=== PATIENT | female | born 1985 | race Hispanic/Latino ===

== ENCOUNTER 2018-02-17 21:30 | Emergency (ER) | payer SELFPAY ==
[2018-02-17] MEDS ORDERED: Naproxen 550 mg Tab PO STA (22:32)
--- NOTE | 2018-02-17 22:35 | C.PDOC ---
History Of Present Illness 33-year-old female presents to the ED complaining of left-sided neck pain since waking up today. She describes her neck feeling tight. No trauma or injury. Patient notes that the pain worsens when rotating her head toward the left, but not in the other direction. She reports having episodes of similar pain on the right side of neck in the past, for which she was treated with physical therapy. Otherwise denies any fever, chills, headache, dizziness, or changes in sensation. Time Seen by Provider: 02/17/18 21:57 Chief Complaint (Nursing): Headache History Per: Patient History/Exam Limitations: no limitations Onset/Duration Of Symptoms: Days (x1) Current Symptoms Are (Timing): Still Present Quality: Tightness Past Medical History Reviewed: Historical Data, Nursing Documentation, Vital Signs Vital Signs: Last Vital Signs Temp 99 F 02/17/18 22:50 Pulse 70 02/17/18 22:50 Resp 16 02/17/18 22:50 BP 122/75 02/17/18 22:50 Pulse Ox 98 02/17/18 23:37 - Medical History PMH: Asthma - [facility] Procedures OTHER SKIN & SUBQ I D (02/21/15) Family History: States: Unknown Family Hx - Social History Hx Tobacco Use: Yes Hx Alcohol Use: No Hx Substance Use: No - Immunization History Hx Tetanus Toxoid Vaccination: Yes (November 2015) Hx Influenza Vaccination: No Hx Pneumococcal Vaccination: No Review Of Systems Constitutional: Negative for: Fever, Chills Musculoskeletal: Positive for: Neck Pain Neurological: Negative for: Weakness, Numbness Physical Exam - Physical Exam Appears: Well, Non-toxic, No Acute Distress Skin: Normal Color, Warm, Dry Head: Atraumatic, Normacephalic Eye(s): bilateral: Normal Inspection, EOMI Nose: Normal Oral Mucosa: Moist Neck: Normal ROM (pain ellicited with rotation to the ipsilateral side), Trachea Midline, No Midline Cervical Tenderness, No Step Off Deformity, Supple, Other (Tenderness to the left trapezius, with muscle spasm) Lymphatic: Normal Exam Chest: Symmetrical Cardiovascular: Rhythm Regular Respiratory: Normal Breath Sounds, No Accessory Muscle Use, Other (Speaking in full sentences) Back: Normal Inspection, No Vertebral Tenderness Extremity: Bilateral: Atraumatic, Normal ROM Neurological/Psych: Oriented x3, Normal Speech, Normal Motor, Normal Sensation, Other (No focal deficits) ED Course And Treatment O2 Sat by Pulse Oximetry: 98 (RA) Pulse Ox Interpretation: Normal Progress Note: Patient treated with PO Naproxen and Flexeril. On re-evlauation , pain improved. Patient discharged home with prescriptions for Naproxen and Flexeril. Advised to follow up with PMD for further evaluation in 1-2 days. Disposition Counseled Patient/Family Regarding: Diagnosis, Need For Followup, Rx Given - Disposition Disposition: HOME/ ROUTINE Disposition Time: 22:32 Condition: STABLE Additional Instructions: Follow up with your primary doctor and physical therapist in 1-2 days. Return to ER if symptoms persist or worsen. Prescriptions: Cyclobenzaprine [Cyclobenzaprine HCl] 10 mg PO BID PRN #14 tab PRN Reason: Muscle Spasm Naproxen [Naprosyn] 1 tab PO BID PRN #20 tab PRN Reason: Pain Instructions: Cervical Muscle Strain (DC) Forms: [facility] (Swiss), Work Excuse - POA Present On Arrival: None - Clinical Impression Clinical Impression: Torticollis - PA / [employer] / Resident Statement MD/DO has reviewed & agrees with the documentation as recorded. - Scribe Statement The provider has reviewed the documentation as recorded by the Scribe (Ashly Nova) All medical record entries made by the Scribe were at my direction and personally dictated by me. I have reviewed the chart and agree that the record accurately reflects my personal performance of the history, physical exam, medical decision making, and the department course for this patient. I have also personally directed, reviewed, and agree with the discharge instructions and disposition.
[2018-02-17] MEDS ORDERED: Naproxen 550 mg Tab PO ONE (22:45)
[2018-02-17 22:51] VITALS: BP 122/75; PULSE 70; RESP 16; TEMP 99
[2018-02-17 23:32] VITALS: O2SAT 98
== END 2018-02-17 22:51 | disposition home or self-care (01) ==
LOC: C.ER 21:30
DX: M43.6 Torticollis (principal)

== ENCOUNTER 2019-01-06 21:51 | Emergency (ER) | payer MEDICAID, OTHER ==
[2019-01-06 22:26] VITALS: RESP 20
--- NOTE | 2019-01-06 23:39 | C.PDOC ---
History Of Present Illness Patient complains of dull headache for a few days. States that she thinks is due to the mold in her apartment. No f/c/n/v. No photophobia.. The headache is the most bothersome. Speaking in complete sentences Time Seen by Provider: 01/06/19 23:30 Chief Complaint (Nursing): Headache History Per: Patient History/Exam Limitations: no limitations Onset/Duration Of Symptoms: Hrs Current Symptoms Are (Timing): Still Present Severity: Moderate Pain Scale Rating Of: 4 Quality: Dull, Tightness Preceeding Symptoms: None Associated Symptoms: denies: Photophobia Recent travel outside of the [place]: No Additional History Per: Patient Past Medical History Reviewed: Historical Data, Nursing Documentation, Vital Signs Vital Signs: Last Vital Signs Temp 98.4 F 01/06/19 22:18 Pulse 67 01/06/19 22:18 Resp 20 01/06/19 22:18 BP 146/96 H 01/06/19 22:18 Pulse Ox 96 01/06/19 22:18 Primary Care Provider: FAMILY PROVIDER,NO - Medical History PMH: Asthma - [facility] Procedures OTHER SKIN & SUBQ I D (02/21/15) Family History: States: Unknown Family Hx - Social History Hx Tobacco Use: Yes Hx Alcohol Use: No Hx Substance Use: No - Immunization History Hx Tetanus Toxoid Vaccination: Yes (November 2015) Hx Influenza Vaccination: No Hx Pneumococcal Vaccination: No Review Of Systems Constitutional: Negative for: Fever, Chills ENT: Negative for: Throat Pain Cardiovascular: Negative for: Chest Pain Respiratory: Negative for: Shortness of Breath Gastrointestinal: Negative for: Rectal Pain Skin: Negative for: Rash Neurological: Negative for: Headache Psych: Negative for: Anxiety Physical Exam - Physical Exam Appears: Non-toxic Skin: Warm, Dry Eye(s): bilateral: Normal Inspection Nose: Normal Oral Mucosa: Moist Lips: Normal Appearing Neck: Supple Chest: Symmetrical Cardiovascular: Rhythm Regular Respiratory: No Rales, No Rhonchi, No Wheezing Extremity: Normal ROM Extremity: Bilateral: Atraumatic Neurological/Psych: Oriented x3 Gait: Steady ED Course And Treatment - Laboratory Results Result Diagrams: 01/07/19 01:08 01/07/19 00:04 O2 Sat by Pulse Oximetry: 96 Pulse Ox Interpretation: Normal Reevaluation Time: 02:53 Reassessment Condition: Improved Medical Decision Making Medical Decision Making: Upon provider reevaluation patient is feeling better, is medically stable, and requires no further treatment in the ED at this time. Patient will be discharged home with Rx for zofran, naproxen . Counseling was provided and all questions were answered regarding diagnosis and need for follow up with the referred clinic. There is agreement to discharge plan. Return if symptoms persist or worsen. Disposition Counseled Patient/Family Regarding: Studies Performed, Diagnosis, Need For Followup, Rx Given - Disposition Referrals: [facility] [Outside] [facility] [Outside] Disposition: HOME/ ROUTINE Disposition Time: 23:39 Condition: FAIR Additional Instructions: Pleasse return if symptoms recur Prescriptions: Naproxen [Naprosyn] 1 tab PO BID PRN #25 tab PRN Reason: Pain Ondansetron ODT [Zofran ODT] 1 odt PO BID PRN #6 odt PRN Reason: Nausea/Vomiting Instructions: Headache, Adult (DC) Forms: [facility] (Austrian) - Clinical Impression Clinical Impression: Headache
[2019-01-07 00:26] LABS: BLOOD UREA NITROGEN 15 mg/dL (7-17); CALCIUM 9.5 mg/dl (8.6-10.4); GFR NON-AFRICAN AMERICAN > 60
[2019-01-07 00:40] LABS: ALB/GLOB RATIO 1.4 (1.0-2.1); ALBUMIN 5.1 g/dL (3.5-5.0); ALT/SGPT < 6 U/L (9-52); AST/SGOT 55 U/L (14-36)
[2019-01-07 00:47] LABS: HCG,QUALITATIVE URINE NEGATIVE (NEGATIVE)
[2019-01-07 01:15] LABS: SQUAMOUS EPITHIAL 2 /hpf (0-5); URINE BACTERIA RARE (<OCC); URINE BILIRUBIN NEGATIVE (NEGATIVE); URINE BLOOD NEGATIVE (NEGATIVE); URINE CLARITY Clear (Clear); URINE COLOR Straw (YELLOW); URINE GLUCOSE (UA) NORMAL (Normal); URINE LEUKOCYTE ESTERASE NEG Leu/uL (Negative); URINE PROTEIN NEGATIVE (NEGATIVE); URINE UROBILINOGEN NORMAL mg/dL (0.2-1.0)
[2019-01-07 01:19] LABS: BASO % 0.3 % (0.0-2.0); EOS # 0.5 K/uL (0.0-0.7); EOS % 6.5 % (0.0-4.0); HEMOGLOBIN 13.9 g/dL (11.0-16.0); LYMPH % 38.1 % (20.0-40.0); MEAN CELL VOLUME 98.8 fL (81.0-99.0); MEAN CORPUSCULAR HEMOGLOBIN 34.2 pg (27.0-31.0); MEAN CORPUSCULAR HGB CONC 34.6 g/dL (33.0-37.0); MEAN PLATELET VOLUME 9.9 fL (7.2-11.7); MONO # 0.5 K/uL (0.0-0.8); MONO % 6.2 % (0.0-10.0); NEUT # 3.9 K/uL (1.8-7.0); NEUT % 48.9 % (50.0-75.0); NRBC % 0.1 % (0.0-2.0); RBC 4.05 Mil/uL (3.80-5.20); RED CELL DISTRIBUTION WIDTH 12.9 % (11.5-14.5); WHITE BLOOD COUNT 7.9 K/uL (4.8-10.8)
[2019-01-07 03:14] VITALS: BP 140/90; PULSE 70; TEMP 98.6; O2SAT 98
== END 2019-01-07 02:59 | disposition home or self-care (01) ==
LOC: C.ER 21:51
DX: R51 Headache (principal)
CPT/HCPCS: 80053; 81001; 84703; 85025; 96374; 96375; 99284; J1100; J1885; J2405